=== PATIENT | female | born 1985 | race Caucasian/White ===

== ENCOUNTER 2018-04-28 22:13 | Emergency (ER) | payer SELFPAY ==
[~2018-04-28] VITALS: Ht 160 cm; Wt 76.7 kg
[2018-04-28 22:16] VITALS: BP 140/87
== END 2018-04-28 22:50 | disposition home or self-care (01) ==
LOC: ED 22:36
DX: L03.811 Cellulitis of head [any part, except face] (principal); Z87.891 Personal history of nicotine dependence
CPT/HCPCS: 99283